=== PATIENT | female | born 1945 | race Caucasian/White ===

== ENCOUNTER 2016-08-17 18:31 | Emergency (ER) | payer MEDICARE, OTHER ==
[~2016-08-17] VITALS: Ht 160 cm; Wt 77.1 kg
[~2016-08-17 18:31] MED LIST: ASPI-498 OR; CALC0.25 PO; CARV3.1240 PO; CINA30TA2 PO; DOC100C PO; FUR40T PO; HYDR-4663 PO; INSU75SU2 SC; ISOS60TA PO; LEVO75TA6 PO; METO-75 PO; NITR0.4S29 SL; PANT1INJ3 IV; PRAS10TA PO; SERT-160 PO; SEVE800T8 PO; SIMV-13 PO
[2016-08-17 20:41] LABS: Basophils # (auto) 0 uL; Basophils % (auto) 0.5 % (0.0-2.0); Eosinophils # (auto) 0.1 uL; Eosinophils % (auto) 1.1 % (0.0-7.0); Hematocrit 31.4 % (36.0-46.0); Hemoglobin 10.5 g/dL (12.2-16.2); Lymphocytes # (auto) 0.7 uL; Lymphocytes % (auto) 8.5 % (10.0-50.0); Mean Corpuscular Hemoglobin 30.2 pg (28.0-32.0); Mean Corpuscular Hgb Conc. 33.4 g/dL (32.0-36.0); Mean Corpuscular Volume 90.5 fL (80.0-100.0); Mean Platelet Volume 6.8 fL (7.4-10.4); Monocytes # (auto) 0.5 uL; Monocytes % (auto) 6.2 % (0.0-12.0); Neutrophils # (auto) 7.4 uL; Neutrophils % (auto) 83.7 % (37.0-80.0); Platelet Count (auto) 237 10^3/uL (140-450); Red Cell Distribution Width 16.2 % (11.6-16.0); White Blood Cell 8.8 10^3/uL (4.4-10.8)
[2016-08-17 20:51] LABS: Potassium 4.2 mmol/L (3.5-5.1)
[2016-08-17 20:57] LABS: Albumin 3.6 g/dL (3.4-5.0); BUN/Creatinine Ratio 6.3
[2016-08-17 20:59] LABS: Bilirubin, Total 0.8 mg/dL (0.2-1.0); Total Protein 7.9 g/dL (6.4-8.2)
[2016-08-17 22:27] VITALS: BP 143/76
[2016-08-17] MEDS: HYDROmorphone HCL 2 MG/ML VL IM ONE (22:38)
[2016-08-17] MEDS: ONDANSETRON HCL 4 MG/2 ML VIAL IM ONE (22:39)
== END 2016-08-18 00:13 | disposition home or self-care (01) ==
LOC: EDBD 18:31 → ER 18:33
DX: H57.12 Ocular pain, left eye (principal); R51 Headache; I48.91 Unspecified atrial fibrillation; Z79.01 Long term (current) use of anticoagulants; I11.0 Hypertensive heart disease with heart failure; I50.9 Heart failure, unspecified; K21.9 Gastro-esophageal reflux disease without esophagitis; E07.89 Other specified disorders of thyroid; E11.9 Type 2 diabetes mellitus without complications
CPT/HCPCS: 36415; 70450; 80053; 84484; 85025; 96372; 99285; J1170; J2405

== ENCOUNTER 2017-02-17 14:36 | Inpatient (IN) | payer MEDICARE, OTHER ==
[~2017-02-17] VITALS: Ht 172.7 cm; Wt 95.6 kg
[~2017-02-17 14:36] MED LIST changes: -HYDR-4663 PO; +HYDR-4683 PO
[2017-02-17 15:34] LABS: Allen Test No; Base Excess 1.4 mmol/L (-2.0-2.0); Blood 02Sat 94.2 % (96-100); Blood COHb 0.3 % (0.5-1.5); Blood MetHb 0.1 % (0.0-1.5); HCO3 26.9 mmol/L (22-26.0); HHb 5.8 % (0.0-5.0); MODE MASK - SIMPLE; O2Hb 93.8 % (94.0-97.0); PCO2 46.5 mmHg (35.0-45.0); PCO2(T) 46.5 mmHg (35.0-45.0); PO2 88.3 mmHg (80.0-100.0); PO2(T) 88.3 mmHg (80.0-100.0); Sample Type Arterial
[2017-02-17 16:06] LABS: Albumin 3.3 g/dL (3.4-5.0); BUN/Creatinine Ratio 9.5; Bilirubin, Total 0.6 mg/dL (0.2-1.0); Calcium 7.8 mg/dL (8.5-10.1); Magnesium 2.9 mg/dL (1.6-2.6); Total Protein 7.3 g/dL (6.4-8.2)
[2017-02-17 16:22] LABS: Urine Bilirubin Negative (Negative); Urine Blood 2+ /uL (Negative); Urine Color Yellow (Yellow); Urine Glucose Normal (Normal); Urine Ketone Negative (Negative); Urine Nitrite Negative (Negative); Urine RBC 78 /hpf (0 - 4); Urine Squamous Epithelial Cell MOD /hpf (<5); Urine Urobilinogen Normal (Negative); Urine WBC Clumps PRESENT /hpf (None Seen)
[2017-02-17] MEDS ORDERED: DEXTROSE (50%) 50ML SYRG IV PRN (17:00)
[2017-02-17] MEDS ORDERED: PROMETHAZINE HCL 25 MG/ML 1ML IV PRN (17:00)
[2017-02-17] MEDS ORDERED: MORPHINE SULF INJ 2 MG/ML SYRINGE 1ML IV PRN ×2 (17:00)
[2017-02-17] MEDS ORDERED: LORazepam 2MG/ML-1ML VIAL IV PRN (17:00)
[2017-02-17] MEDS ORDERED: NITROGLYCERIN 0.4 MG SL TAB SL PRN (17:00)
[2017-02-17] MEDS: ACCU-CHEK COMFORT CURVE STRIP VI SCH (18:27)
[2017-02-17] MEDS: InsuLIN REG 1unit/0.01ml Soln (100units/ml) SC SCH (18:27)
[2017-02-17 18:35] LABS: Basophils # (auto) 0 uL; Basophils % (auto) 0.5 % (0.0-2.0); Eosinophils # (auto) 0.1 uL; Eosinophils % (auto) 0.9 % (0.0-7.0); Hematocrit 29.1 % (36.0-46.0); Hemoglobin 9.4 g/dL (12.2-16.2); Lymphocytes # (auto) 0.5 uL; Lymphocytes % (auto) 6.2 % (10.0-50.0); Mean Corpuscular Hemoglobin 27.9 pg (28.0-32.0); Mean Corpuscular Hgb Conc. 32.2 g/dL (32.0-36.0); Mean Corpuscular Volume 86.5 fL (80.0-100.0); Mean Platelet Volume 7.9 fL (6.9-10.8); Monocytes # (auto) 0.6 uL; Monocytes % (auto) 6.4 % (0.0-12.0); Neutrophils # (auto) 7.6 uL; Nucleated Red Blood Cells % 0.2 %; Platelet Count (auto) 93 10^3/uL (140-450); White Blood Cell 8.8 10^3/uL (4.4-10.8)
[2017-02-17 18:47] LABS: Red Cell Distribution Width 21.1 % (11.8-14.3)
[2017-02-17 19:05] LABS: INR 1.14 (0.9-1.15); Partial Thromboplastin Time 26.6 sec (22.64-33.71); Prothrombin Time 12.4 sec (9.37-12.3)
[2017-02-17 19:26] LABS: Temperature: 21.9 C (20.0-25.0)
[2017-02-17 19:45] LABS: Anisocytosis Slight; Ovalocytes FEW; Platelet Estimate Decreased
[2017-02-17] MEDS: CARVEDILOL 3.125 MG TAB PO SCH (23:00)
[2017-02-17] MEDS: ATORVASTATIN 20 MG TAB PO SCH (23:01)
[2017-02-18] MEDS: CARVEDILOL 3.125 MG TAB PO SCH ×2 (01:35→10:16)
[2017-02-18] MEDS: InsuLIN REG 1unit/0.01ml Soln (100units/ml) SC SCH ×5 (01:37→22:56)
[2017-02-18] MEDS: ACCU-CHEK COMFORT CURVE STRIP VI SCH ×5 (06:00→22:57)
[2017-02-18 06:45] LABS: Basophils # (auto) 0.1 uL; Basophils % (auto) 0.9 % (0.0-2.0); Eosinophils # (auto) 0.3 uL; Hemoglobin 8.9 g/dL (12.2-16.2); Lymphocytes # (auto) 0.7 uL; Lymphocytes % (auto) 8.8 % (10.0-50.0); Mean Corpuscular Hemoglobin 27.9 pg (28.0-32.0); Mean Corpuscular Volume 84.4 fL (80.0-100.0); Mean Platelet Volume 7.4 fL (6.9-10.8); Monocytes # (auto) 0.7 uL; Monocytes % (auto) 8.4 % (0.0-12.0); Neutrophils # (auto) 6.5 uL; Neutrophils % (auto) 78.9 % (37.0-80.0); Nucleated Red Blood Cells % 0.2 %; Platelet Count (auto) 88 10^3/uL (140-450); White Blood Cell 8.3 10^3/uL (4.4-10.8)
[2017-02-18 06:51] LABS: Red Cell Distribution Width 21.2 % (11.8-14.3)
[2017-02-18 07:07] LABS: Albumin 3.3 g/dL (3.4-5.0); BUN/Creatinine Ratio 9.3; Calcium 8.6 mg/dL (8.5-10.1); Potassium 3.1 mmol/L (3.5-5.1)
[2017-02-18 07:10] LABS: Bilirubin, Total 0.7 mg/dL (0.2-1.0); Total Protein 7.1 g/dL (6.4-8.2)
[2017-02-18] MEDS: LEVOTHYROXINE SODIUM 25 MCG TAB PO SCH (07:11)
[2017-02-18 07:26] LABS: B-Type Natriuretic Peptide 3823.54 pg/mL (0-100)
[2017-02-18 07:49] LABS: Temperature: 22.7 C (20.0-25.0)
[2017-02-18 08:01] LABS: Anisocytosis Slight; Burr Cells FEW; Ovalocytes FEW; Platelet Estimate Decreased; Schistocytes FEW
[2017-02-18] MEDS ORDERED: DORZ2SOL22 LEFTEYE (09:17)
[2017-02-18] MEDS ORDERED: LATA0.0015 LEFTEYE (09:17)
[2017-02-18] MEDS ORDERED: BRIM0.159 LEFTEYE (09:18)
[2017-02-18] MEDS ORDERED: CLOP75TA28 PO (09:21)
[2017-02-18] MEDS ORDERED: ENALAPRIL MALEATE 2.5 MG TAB NG SCH (10:00)
[2017-02-18] MEDS ORDERED: NITROGLYCERIN 0.2MG/HR TOPICAL PATCH TD SCH (10:00)
[2017-02-18] MEDS ORDERED: PRASUGREL HCL 10 MG TAB PO SCH (10:00)
[2017-02-18] MEDS ORDERED: ENALAPRIL MALEATE 2.5 MG TAB PO SCH (10:00)
[2017-02-18] MEDS ORDERED: ASPirin 81 mg TAB NG SCH (10:00)
[2017-02-18] MEDS: ASPirin 81 mg TAB PO SCH (10:15)
[2017-02-18] MEDS: PANTOPRAZOLE 40 MG/10 ML VIAL IV SCH (10:15)
[2017-02-18] MEDS: FUROSEMIDE 40 MG/4 ML VIAL IV SCH (10:15)
[2017-02-18] MEDS: ENOXAPARIN SOD 30 MG/0.3 ML SYRINGE SC SCH (10:16)
[2017-02-18] MEDS: CLOPIDOGREL BISULFATE 75 MG TAB PO SCH (10:16)
[2017-02-18] MEDS ORDERED: SEVELAMER 800 MG TAB PO SCH (13:00)
[2017-02-18] MEDS ORDERED: POTASSIUM CHL 20 Meq TABLET PO ONE (14:45)
[2017-02-18] MEDS ORDERED: EPOETIN ALFA 10,000 UNIT/1 ML VIAL IV ONE (14:45)
[2017-02-18] MEDS ORDERED: SODIUM CHL 0.9% 1000 ML BAG XX ONE (14:45)
[2017-02-18] MEDS: B-COMPLEX W/ C & FOLIC ACID(NEPHROVITE TAB) PO SCH (14:45)
[2017-02-18] MEDS ORDERED: ALBUMIN 25% 100 ML IV PRN (15:00)
[2017-02-18 15:34] LABS: Basophils # (auto) 0.1 uL; Basophils % (auto) 0.9 % (0.0-2.0); Eosinophils # (auto) 0.2 uL; Eosinophils % (auto) 3.1 % (0.0-7.0); Hemoglobin 9.1 g/dL (12.2-16.2); Lymphocytes # (auto) 0.7 uL; Lymphocytes % (auto) 9.6 % (10.0-50.0); Mean Corpuscular Hemoglobin 27.8 pg (28.0-32.0); Mean Corpuscular Hgb Conc. 32.3 g/dL (32.0-36.0); Mean Corpuscular Volume 86.2 fL (80.0-100.0); Mean Platelet Volume 7.8 fL (6.9-10.8); Monocytes # (auto) 0.7 uL; Neutrophils # (auto) 5.7 uL; Neutrophils % (auto) 77.4 % (37.0-80.0); Nucleated Red Blood Cells % 0.1 %; Platelet Count (auto) 93 10^3/uL (140-450); White Blood Cell 7.4 10^3/uL (4.4-10.8)
[2017-02-18 15:53] LABS: Calcium 8.3 mg/dL (8.5-10.1); Potassium 3.5 mmol/L (3.5-5.1)
[2017-02-18 15:55] LABS: BUN/Creatinine Ratio 9.3
[2017-02-18 17:00] VITALS: BP 109/55
[2017-02-18] MEDS: SEVELAMER 800 MG TAB PO SCH (18:04)
[2017-02-18] MEDS: ATORVASTATIN 20 MG TAB PO SCH (20:44)
[2017-02-18] MEDS: MORPHINE SULF INJ 2 MG/ML SYRINGE 1ML IV PRN (20:49)
[2017-02-18 21:45] VITALS: BP 103/62
[2017-02-19 05:00] VITALS: BP 103/63
[2017-02-19] MEDS: MORPHINE SULF INJ 2 MG/ML SYRINGE 1ML IV PRN (05:19)
[2017-02-19] MEDS: LEVOTHYROXINE SODIUM 25 MCG TAB PO SCH (05:30)
[2017-02-19] MEDS: ACCU-CHEK COMFORT CURVE STRIP VI SCH ×3 (05:37→18:20)
[2017-02-19] MEDS: InsuLIN REG 1unit/0.01ml Soln (100units/ml) SC SCH ×3 (05:38→18:00)
[2017-02-19] MEDS: SEVELAMER 800 MG TAB PO SCH ×3 (08:06→18:20)
[2017-02-19 09:01] VITALS: BP 115/79
[2017-02-19] MEDS: ACETAMINOPHEN 325 MG TAB PO PRN ×2 (09:44→15:45)
[2017-02-19] MEDS: CLOPIDOGREL BISULFATE 75 MG TAB PO SCH (10:00)
[2017-02-19] MEDS: PANTOPRAZOLE 40 MG/10 ML VIAL IV SCH (10:00)
[2017-02-19] MEDS: ENOXAPARIN SOD 30 MG/0.3 ML SYRINGE SC SCH (10:00)
[2017-02-19] MEDS: B-COMPLEX W/ C & FOLIC ACID(NEPHROVITE TAB) PO SCH (10:00)
[2017-02-19] MEDS: FUROSEMIDE 40 MG/4 ML VIAL IV SCH (10:00)
[2017-02-19] MEDS: ASPirin 81 mg TAB PO SCH (10:00)
[2017-02-19] MEDS ORDERED: IOHEXOL 350 MG/ML 100ML IJ ONE (10:48)
[2017-02-19] MEDS ORDERED: LIDOCAINE 2%HCL (LOCAL ANESTH.) INJ 20ML MDV ONE (10:48)
[2017-02-19] MEDS ORDERED: SODIUM CHL 0.9% 100 ML ONE (11:55)
[2017-02-19] MEDS ORDERED: fentaNYL CITRATE 100 MCG/2 ML VL ONE (12:01)
[2017-02-19] MEDS ORDERED: MIDAZOLAM HCL 1MG/1ML-2 ML VIAL ONE (12:02)
[2017-02-19] MEDS ORDERED: ANGIOMAX 250 MG VIAL IV ONE (12:02)
[2017-02-19] MEDS ORDERED: ONDANSETRON HCL 4 MG/2 ML VIAL ONE (12:02)
[2017-02-19] MEDS ORDERED: PHENYLEPHRINE HCL 10 MG/ML VL ONE (12:12)
[2017-02-19] MEDS ORDERED: DOPamine 1600MCG/ML D5W 250 ML IV ONE (12:15)
[2017-02-19] MEDS ORDERED: MILK OF MAGNESIA 30ML SUSP PO ONE (13:15)
[2017-02-19] MEDS ORDERED: ONDANSETRON HCL 4 MG/2 ML VIAL IV PRN (13:15)
[2017-02-19] MEDS ORDERED: ZOLPIDEM TARTRATE 5 MG TAB PO PRN (13:15)
[2017-02-19] MEDS ORDERED: ACETAMINOPHEN 500 MG TAB PO PRN (13:15)
[2017-02-19] MEDS ORDERED: MORPHINE SULF INJ 2 MG/ML SYRINGE 1ML IV PRN (13:15)
[2017-02-19] MEDS ORDERED: LORazepam 0.5 MG TAB PO PRN (13:15)
[2017-02-19] MEDS: SODIUM CHLOR 0.9% PF (SALINE LOCK) 10ML VIAL IV SCH ×2 (14:00→21:47)
[2017-02-19 14:54] LABS: BUN/Creatinine Ratio 8.8; Calcium 8.1 mg/dL (8.5-10.1); Potassium 3.6 mmol/L (3.5-5.1)
[2017-02-19 15:15] LABS: Eosinophils # (auto) 0.2 uL; Eosinophils % (auto) 2.3 % (0.0-7.0); Hemoglobin 9.5 g/dL (12.2-16.2); Lymphocytes # (auto) 0.4 uL; Monocytes # (auto) 0.8 uL; Nucleated Red Blood Cells % 0.2 %
[2017-02-19 15:18] LABS: Basophils # (auto) 0 uL; Basophils % (auto) 0.5 % (0.0-2.0); Hematocrit 29.2 % (36.0-46.0); Lymphocytes % (auto) 4.6 % (10.0-50.0); Mean Corpuscular Hemoglobin 28.1 pg (28.0-32.0); Mean Corpuscular Hgb Conc. 32.5 g/dL (32.0-36.0); Mean Corpuscular Volume 86.4 fL (80.0-100.0); Mean Platelet Volume 8.3 fL (6.9-10.8); Monocytes % (auto) 9.6 % (0.0-12.0); Neutrophils # (auto) 7.3 uL; Platelet Count (auto) 62 10^3/uL (140-450); White Blood Cell 8.8 10^3/uL (4.4-10.8)
[2017-02-19 15:19] LABS: Red Cell Distribution Width 22.4 % (11.8-14.3)
[2017-02-19 16:30] VITALS: BP 99/57
[2017-02-19 16:38] VITALS: BP 122/65
[2017-02-19 16:41] LABS: Platelet Estimate Markedly Decreased
[2017-02-19 16:42] LABS: Anisocytosis Slight
[2017-02-19 16:43] LABS: Burr Cells FEW; Ovalocytes FEW
[2017-02-19] MEDS: ATORVASTATIN 20 MG TAB PO SCH (21:47)
[2017-02-19 22:00] VITALS: BP 96/56
[2017-02-20] MEDS: ACCU-CHEK COMFORT CURVE STRIP VI SCH ×4 (00:15→18:07)
[2017-02-20] MEDS: InsuLIN REG 1unit/0.01ml Soln (100units/ml) SC SCH ×4 (00:15→18:00)
[2017-02-20] MEDS: ACETAMINOPHEN 325 MG TAB PO PRN (02:28)
[2017-02-20 05:00] VITALS: BP 92/51
[2017-02-20] MEDS: SODIUM CHLOR 0.9% PF (SALINE LOCK) 10ML VIAL IV SCH ×3 (05:52→21:37)
[2017-02-20] MEDS: MORPHINE SULF INJ 2 MG/ML SYRINGE 1ML IV PRN ×2 (06:02→12:20)
[2017-02-20] MEDS: LEVOTHYROXINE SODIUM 25 MCG TAB PO SCH (06:14)
[2017-02-20 07:32] LABS: Basophils # (auto) 0.1 uL; Basophils % (auto) 0.7 % (0.0-2.0); Eosinophils # (auto) 0.2 uL; Eosinophils % (auto) 2.3 % (0.0-7.0); Hematocrit 28.9 % (36.0-46.0); Hemoglobin 9.4 g/dL (12.2-16.2); Lymphocytes # (auto) 0.6 uL; Lymphocytes % (auto) 8.1 % (10.0-50.0); Mean Corpuscular Hemoglobin 28.4 pg (28.0-32.0); Mean Corpuscular Hgb Conc. 32.5 g/dL (32.0-36.0); Mean Corpuscular Volume 87.3 fL (80.0-100.0); Mean Platelet Volume 8.5 fL (6.9-10.8); Monocytes # (auto) 0.7 uL; Monocytes % (auto) 9.6 % (0.0-12.0); Neutrophils # (auto) 6.2 uL; Neutrophils % (auto) 79.3 % (37.0-80.0); Nucleated Red Blood Cells % 0.4 %; Platelet Count (auto) 91 10^3/uL (140-450); White Blood Cell 7.8 10^3/uL (4.4-10.8)
[2017-02-20 07:41] LABS: Red Cell Distribution Width 22.2 % (11.8-14.3)
[2017-02-20 07:56] LABS: Platelet Estimate Decreased
[2017-02-20 07:58] LABS: Anisocytosis Slight; Burr Cells FEW
[2017-02-20 08:00] VITALS: BP 97/53
[2017-02-20] MEDS: SEVELAMER 800 MG TAB PO SCH ×3 (08:01→18:07)
[2017-02-20 08:30] VITALS: BP 97/53
[2017-02-20] MEDS: PANTOPRAZOLE 40 MG/10 ML VIAL IV SCH (10:06)
[2017-02-20] MEDS: FUROSEMIDE 40 MG/4 ML VIAL IV SCH (10:06)
[2017-02-20] MEDS: CLOPIDOGREL BISULFATE 75 MG TAB PO SCH (10:07)
[2017-02-20] MEDS: ENOXAPARIN SOD 30 MG/0.3 ML SYRINGE SC SCH (10:07)
[2017-02-20] MEDS: ASPirin 81 mg TAB PO SCH (10:07)
[2017-02-20 12:30] VITALS: BP 94/51
[2017-02-20] MEDS: B-COMPLEX W/ C & FOLIC ACID(NEPHROVITE TAB) PO SCH (16:38)
[2017-02-20 17:06] VITALS: BP 114/73
[2017-02-20] MEDS ORDERED: LACTULOSE 20Gm/30ML SOLN PO PRN (18:15)
[2017-02-20] MEDS: ATORVASTATIN 20 MG TAB PO SCH (21:36)
[2017-02-20 22:00] VITALS: BP 102/55
[2017-02-21] MEDS: ACCU-CHEK COMFORT CURVE STRIP VI SCH ×3 (00:16→12:12)
[2017-02-21 05:00] VITALS: BP 131/60
[2017-02-21] MEDS: SODIUM CHLOR 0.9% PF (SALINE LOCK) 10ML VIAL IV SCH ×2 (05:36→15:10)
[2017-02-21] MEDS: InsuLIN REG 1unit/0.01ml Soln (100units/ml) SC SCH ×3 (05:37→12:12)
[2017-02-21] MEDS: LEVOTHYROXINE SODIUM 25 MCG TAB PO SCH (06:07)
[2017-02-21] MEDS: SEVELAMER 800 MG TAB PO SCH ×2 (07:46→12:11)
[2017-02-21 07:56] LABS: Basophils # (auto) 0.1 uL; Basophils % (auto) 0.7 % (0.0-2.0); Eosinophils # (auto) 0.2 uL; Eosinophils % (auto) 2.4 % (0.0-7.0); Hematocrit 29.6 % (36.0-46.0); Hemoglobin 9.5 g/dL (12.2-16.2); Lymphocytes # (auto) 0.7 uL; Lymphocytes % (auto) 8.3 % (10.0-50.0); Mean Corpuscular Hgb Conc. 32.1 g/dL (32.0-36.0); Mean Corpuscular Volume 87.2 fL (80.0-100.0); Mean Platelet Volume 7.9 fL (6.9-10.8); Monocytes # (auto) 0.9 uL; Neutrophils # (auto) 6.2 uL; Neutrophils % (auto) 77.6 % (37.0-80.0); Nucleated Red Blood Cells % 0.3 %; Platelet Count (auto) 110 10^3/uL (140-450)
[2017-02-21 07:58] LABS: Red Cell Distribution Width 22.2 % (11.8-14.3)
[2017-02-21 08:12] LABS: BUN/Creatinine Ratio 10.2; Calcium 8.6 mg/dL (8.5-10.1); Potassium 5.1 mmol/L (3.5-5.1)
[2017-02-21 08:17] LABS: Bilirubin, Total 0.6 mg/dL (0.2-1.0); Total Protein 7.2 g/dL (6.4-8.2)
[2017-02-21 08:44] LABS: Anisocytosis Slight; Ovalocytes FEW; Platelet Estimate Decreased
[2017-02-21 08:45] LABS: Burr Cells FEW
[2017-02-21 09:00] VITALS: BP 120/62
[2017-02-21] MEDS: B-COMPLEX W/ C & FOLIC ACID(NEPHROVITE TAB) PO SCH (10:21)
[2017-02-21] MEDS: ASPirin 81 mg TAB PO SCH (10:21)
[2017-02-21] MEDS: PANTOPRAZOLE 40 MG/10 ML VIAL IV SCH (10:22)
[2017-02-21] MEDS: ENOXAPARIN SOD 30 MG/0.3 ML SYRINGE SC SCH (10:22)
[2017-02-21] MEDS: CLOPIDOGREL BISULFATE 75 MG TAB PO SCH (10:22)
[2017-02-21] MEDS: FUROSEMIDE 40 MG/4 ML VIAL IV SCH (10:22)
[2017-02-21 12:30] VITALS: BP 111/54
[2017-02-21 13:07] VITALS: BP 111/54
== END 2017-02-21 16:41 | disposition home or self-care (01) | DRG 246 ==
LOC: EDBD 14:36 → ER 14:36 → TELE 14:37 → TELE-WESTW 02-18 16:40
PROVIDERS: ADMIT Internal Medicine; ATTEND Family Medicine
PROC: 5A12012 Performance of Cardiac Output, Single, Manual (ICD-10-PCS; 2017-02-17)
PROC: 027034Z Dilation of Coronary Artery, One Artery with Drug-eluting Intraluminal Device, Percutaneous Approach (ICD-10-PCS; principal; 2017-02-19)
PROC: 4A023N7 Measurement of Cardiac Sampling and Pressure, Left Heart, Percutaneous Approach (ICD-10-PCS; 2017-02-19)
PROC: B2111ZZ Fluoroscopy of Multiple Coronary Arteries using Low Osmolar Contrast (ICD-10-PCS; 2017-02-19)
PROC: B2151ZZ Fluoroscopy of Left Heart using Low Osmolar Contrast (ICD-10-PCS; 2017-02-19)
PROC: 3E1M39Z Irrigation of Peritoneal Cavity using Dialysate, Percutaneous Approach (ICD-10-PCS; 2017-02-19)
DX: I13.2 Hypertensive heart and chronic kidney disease with heart failure and with stage 5 chronic kidney disease, or end stage renal disease (principal); N18.6 End stage renal disease; I46.9 Cardiac arrest, cause unspecified; N17.9 Acute kidney failure, unspecified; I95.3 Hypotension of hemodialysis; E11.21 Type 2 diabetes mellitus with diabetic nephropathy; E44.1 Mild protein-calorie malnutrition; I48.91 Unspecified atrial fibrillation; E11.65 Type 2 diabetes mellitus with hyperglycemia; I50.43 Acute on chronic combined systolic (congestive) and diastolic (congestive) heart failure; N39.0 Urinary tract infection, site not specified; E11.319 Type 2 diabetes mellitus with unspecified diabetic retinopathy without macular edema; E66.01 Morbid (severe) obesity due to excess calories; K57.90 Diverticulosis of intestine, part unspecified, without perforation or abscess without bleeding; I25.10 Atherosclerotic heart disease of native coronary artery without angina pectoris; K21.9 Gastro-esophageal reflux disease without esophagitis; D63.1 Anemia in chronic kidney disease; E03.9 Hypothyroidism, unspecified; E78.5 Hyperlipidemia, unspecified; E83.41 Hypermagnesemia; E87.6 Hypokalemia; F02.80 Dementia in other diseases classified elsewhere, unspecified severity, without behavioral disturbance, psychotic disturbance, mood disturbance, and anxiety; F32.9 Major depressive disorder, single episode, unspecified; G30.9 Alzheimer's disease, unspecified; H54.8 Legal blindness, as defined in USA; I25.5 Ischemic cardiomyopathy; Z80.1 Family history of malignant neoplasm of trachea, bronchus and lung; Z99.2 Dependence on renal dialysis; Z82.0 Family history of epilepsy and other diseases of the nervous system; Z83.3 Family history of diabetes mellitus; I25.2 Old myocardial infarction; Z86.73 Personal history of transient ischemic attack (TIA), and cerebral infarction without residual deficits; Z95.5 Presence of coronary angioplasty implant and graft; Z68.32 Body mass index [BMI] 32.0-32.9, adult
CPT/HCPCS: 36415; 36600; 51702; 70450; 71010; 80048; 80053; 80061; 81001; 82550; 82565; 82805; 82962; 83036; 83735; 83880; 84443; 84484; 85025; 85379; 85610; 85652; 85730; 86141; 87081; 87086; 90935; 92928; 92950; 93005; 93458; 94761; 96374; 96375; 99152; C1874; C9113; J0885; J1642; J1815; J2250; J2405